=== PATIENT | male | born 1985 | race Caucasian/White ===

== ENCOUNTER 2020-10-26 01:51 | Emergency (ER) | payer SELFPAY ==
[2020-10-26] MEDS ORDERED: Sodium Chloride 0.9% 10 ML Syringe FLUSH PRN (02:08)
[2020-10-26] MEDS ORDERED: Sodium Chloride 0.9% 2.5 ML Syringe FLUSH PRN (02:08)
--- NOTE | 2020-10-26 02:32 | EDM.PDOC ---
ED HPI GENERAL MEDICAL PROBLEM - General Chief Complaint: Cardiovascular Problem Stated Complaint: LIGHT-HEADED, NAUSEATED, LEFT ARM PAIN Time Seen by Provider: 10/26/20 02:09 - History of Present Illness INITIAL COMMENTS - FREE TEXT/NARRATIVE: HISTORY AND PHYSICAL: History of present illness: Is a 35-year-old gentleman who presents ER today secondary to having strong palpitations this evening when he was trying to sleep which made him nervous. Patient reports he started feeling discomfort in his left arm which he thought was secondary to working out. Patient denies any nausea, vomiting, diarrhea. Patient has any shortness of breath or abdominal pain. Patient denies any chest pain, chest pressure, chest discomfort but reports that after he tried to go to sleep he started feeling his heart pounding hard but not fast. Patient reports his heart rate on his phone was in the 90s. Patient got concerned after reading the Internet that this might be something wrong with his heart so came to the ER for further evaluation. Patient denies recent fevers, shakes, chills, nausea, vomiting, diarrhea, dysuria, frequency, urgency. Patient denies any hypertension, diabetes, liver, lung, kidney problems. Patient reports that he has been worked up for this in the past by his doctor and was told that he has a active thyroid but otherwise his tests were all normal. Review of systems: As per history of present illness and below otherwise all systems reviewed and negative. Past medical history: As per history of present illness and as reviewed below otherwise noncontributory. Surgical history: As per history of present illness and as reviewed below otherwise noncontributory. Social history: No reported history of drug abuse. Family history: As per history of present illness and as reviewed below otherwise noncontributory. Physical exam: This patient was seen and evaluated during the 2019 SARS-CoV-2 novel coronavirus pandemic period. Community viral transmission is ongoing at time of this encounter and the emergency department is operating under pandemic response procedures. Constitutional: Patient is oriented to person, place, and time. Appears well- developed and well-nourished. No distress. HEENT: Moist mucous membranes Head: Normocephalic and atraumatic Eyes: Right eye exhibits no discharge. Left eye exhibits no discharge. No scleral icterus Neck: Normal range of motion. No tracheal deviation present. Cardiovascular: Normal rate and regular rhythm. Pulmonary: Effort normal, no respiratory distress. Abdominal: No distention Musculoskeletal: Normal range of motion Neurologic: Alert and oriented to person, place and time. Skin: [place], warm and dry. Psychiatric: Normal mood and affect. Behavior is normal. Judgment and thought content normal. Nursing note and vital signs have been reviewed Diagnostics: EKG: As interpreted by ER physician: Aminta: Nonspecific ST-T wave abnormalities Normal axis No evidence of ST elevation CA Normal sinus rhythm heart rate of 99 Therapeutics: [] Assessment and plan: 35-year-old gentleman who presents ER today with palpitation that he feels at night. Patient denies any stimulants. Patient has any tobacco alcohol or dr montero. Patient denies any diet supplementation or [id number] medications like Sudafed or other stimulants. Patient reports he has been tolerating p.o. solids and liquids well and has been well-hydrated. Patient reports that he worked out earlier today and felt fine. Definitive disposition and diagnosis as appropriate pending reevaluation and review of above. - Related Data Allergies Allergy/AdvReac Type Severity Reaction Status Date / Time Penicillins Allergy Other Verified 10/26/20 02:07 Sulfa (Sulfonamide Allergy Other Verified 10/26/20 02:07 Antibiotics) Home Meds: Home Meds . [No Known Home Meds] 10/26/20 [History] Past Medical History - Past Health History Medical/Surgical History: Denies Medical/Surgical History Social & Family History - Family History Family Medical History: No Pertinent Family History - Tobacco Use Tobacco Use Status *Q: Never Tobacco User - Recreational Drug Use Recreational Drug Use: No ED ROS GENERAL - Review of Systems Review Of Systems: See Below ED EXAM, GENERAL - Physical Exam Exam: See Below Course - Vital Signs Last Recorded V/S: Last Vital Signs Temp 97 F 10/26/20 02:05 Pulse 99 10/26/20 02:05 Resp 20 10/26/20 02:05 BP 144/100 H 10/26/20 02:05 Pulse Ox 97 10/26/20 02:05 - Orders/Labs/Meds Orders: Active Orders 24 hr Category Date Time Status EKG Documentation Completion [RC] STAT Care 10/26/20 02:08 Active COMPREHENSIVE METABOLIC PN,CMP [CHEM] Stat Lab 10/26/20 02:30 Received MAGNESIUM [CHEM] Stat Lab 10/26/20 02:30 Received TROPONIN I [CHEM] Stat Lab 10/26/20 02:30 Received TSH REFLEX TO FREE T4 [CHEM] Stat Lab 10/26/20 02:30 Received Labs: Laboratory Tests 10/26/20 Range/Units 02:30 WBC 9.49 (4.0-11.0) K/uL RBC 4.87 (4.50-5.90) M/uL Hgb 14.2 (13.0-17.0) g/dL Hct 41.6 (38.0-50.0) % MCV 85.4 (80.0-98.0) fL MCH 29.2 (27.0-32.0) pg MCHC 34.1 (31.0-37.0) g/dL RDW Std Deviation 41.7 (28.0-62.0) fl RDW Coeff of Shaila 14 (11.0-15.0) % Plt Count 326 (150-400) K/uL MPV 9.20 (7.40-12.00) fL Neut % (Auto) 68.1 (48.0-80.0) % Lymph % (Auto) 21.8 (16.0-40.0) % [place] % (Auto) 6.1 (0.0-15.0) % Eos % (Auto) 3.5 (0.0-7.0) % Baso % (Auto) 0.5 (0.0-1.5) % Neut # (Auto) 6.5 H (1.4-5.7) K/uL Lymph # (Auto) 2.1 (0.6-2.4) K/uL [place] # (Auto) 0.6 (0.0-0.8) K/uL Eos # (Auto) 0.3 (0.0-0.7) K/uL Baso # (Auto) 0.1 (0.0-0.1) K/uL Nucleated RBC % 0.0 /100WBC Nucleated RBCs # 0 K/uL Meds: Medications Discontinued Medications Generic Name Dose Route Start Last Admin Trade Name Freq PRN Reason Stop Dose Admin Sodium Chloride 10 ml 10/26/20 02:08 Sodium Chloride 0.9% 10 Ml Syringe FLUSH ASDIRECTED PRN Keep Vein Open Sodium Chloride 2.5 ml 10/26/20 02:08 Sodium Chloride 0.9% 2.5 Ml Syringe FLUSH ASDIRECTED PRN Keep Vein Open Departure - Departure Time of Disposition: 02:43 Disposition: Home, Self-Care 01 Condition: Good Clinical Impression: Heart palpitations Instructions: Palpitations, [id number] Referrals: PCP,None [Primary Care Provider] - Forms: ED Department Discharge Additional Instructions: You were seen and evaluated in the ER today secondary to sensation of a hard pounding sensation in your chest. The work-up that we perform the emergency department revealed normal tests including a normal EKG, normal electrolytes, normal cardiac enzymes, normal thyroid tests. Your symptoms may be related to stress and anxiety. Please get plenty of rest over the next 1 to 2 days and drink plenty of fluids. Please make an appointment see your family doctor within the week for reevaluation. The following information is given to patients seen in the emergency department who are being discharged to home. This information is to outline your options for follow-up care. We provide all patients seen in our emergency department with a follow-up referral. The need for follow-up, as well as the timing and circumstances, are variable depending upon the specifics of your emergency department visit. If you don't have a primary care physician on staff, we will provide you with a referral. We always advise you to contact your personal physician following an emergency department visit to inform them of the circumstance of the visit and for follow-up with them and/or the need for any referrals to a consulting specialist. The emergency department will also refer you to a specialist when appropriate. This referral assures that you have the opportunity for follow-up care with a specialist. All of these measure are taken in an effort to provide you with optimal care, which includes your follow-up. Under all circumstances we always encourage you to contact your private physician who remains a resource for coordinating your care. When calling for follow-up care, please make the office aware that this follow-up is from your recent emergency room visit. If for any reason you are refused follow-up, please contact the [facility] Emergency Department at and asked to speak to the emergency department charge nurse. [facility] - Primary Care [address] [place] [id number] [facility] [address] [place] [address] Sepsis Event Note (ED) - Evaluation Sepsis Screening Result: No Definite Risk - Focused Exam Vital Signs: Vital Signs Temp Pulse Resp BP Pulse Ox 10/26/20 02:05 97 F 99 20 144/100 H 97 - My Orders Last 24 Hours: My Active Orders 10/26/20 02:08 EKG Documentation Completion [RC] STAT 10/26/20 02:30 COMPREHENSIVE METABOLIC PN,CMP [CHEM] Stat MAGNESIUM [CHEM] Stat TROPONIN I [CHEM] Stat TSH REFLEX TO FREE T4 [CHEM] Stat - Assessment/Plan Last 24 Hours: My Active Orders 10/26/20 02:08 EKG Documentation Completion [RC] STAT 10/26/20 02:30 COMPREHENSIVE METABOLIC PN,CMP [CHEM] Stat MAGNESIUM [CHEM] Stat TROPONIN I [CHEM] Stat TSH REFLEX TO FREE T4 [CHEM] Stat
[2020-10-26 03:01] LABS: BLOOD UREA NITROGEN,BUN 14 mg/dL (7.0-18.0); CARBON DIOXIDE,CO2 31.4 mmol/L (21.0-32.0); CHLORIDE,CL 103 mmol/L (98-107); GLUCOSE RANDOM 131 mg/dL (74-106); POTASSIUM,K 4.3 mmol/L (3.5-5.1); SODIUM,NA 139 mmol/L (136-148)
== END 2020-10-26 03:39 | disposition home or self-care (01) ==
LOC: MW.ED 01:51
DX: R00.2 Palpitations (principal); Z88.0 Allergy status to penicillin; Z88.2 Allergy status to sulfonamides
CPT/HCPCS: 36415; 80053; 83735; 84443; 84484; 85025; 93005; 99285-25